=== PATIENT | male | born 1960 | race Hispanic/Latino ===

== ENCOUNTER → 2019-03-12 | Outpatient (CLI) | payer OTHER ==
--- NOTE | 2019-03-12 13:41 | Diagnostic Imaging Report ---
EXAM: US ABDOMEN COMPLETE DATE: 03/12/2019 8:13 AM INDICATION:Steatosis of liver COMPARISON: None FINDINGS: Grayscale and color flow Doppler ultrasound of the abdomen was performed. Liver: 14.3 cm span, no hepatomegaly. Mildly hyperechoic hepatic parenchyma compatible with steatosis. No intrahepatic mass or duct dilatation. Main portal vein 1.0 cm, nondilated, normal hepatopetal flow. Spleen: 8.9 cm span, no splenomegaly. Biliary: No cholelithiasis or gallbladder wall thickening. Sonographic Mireles sign negative. Common bile duct 0.3 cm, normal. Pancreas: Partially obscured by bowel. Visualized portions show no mass or duct dilatation. Right kidney: 10.5 x 5.8 x 5.4 cm. Normal cortical echogenicity. No hydronephrosis or contour deforming mass. Left kidney: 10.6 x 6.1 x 6.0 cm. Normal cortical echogenicity. No hydronephrosis or contour deforming mass. Vessels: Aorta and IVC partially obscured by overlying bowel. Visualized portions normal. Ascites: None IMPRESSION: 1. No sonographic evidence for acute abdominal pathology. 2. No hepatosplenomegaly. Mildly hyperechoic hepatic parenchyma compatible with steatosis. 3. No cholelithiasis or dilatation of the biliary tree. Signed by: Dr. Neftali Joy M.D. on 03/12/2019 1:38 PM
== END ==
LOC: US 08:05
PROVIDERS: ATTEND Internal Medicine Gastroenterology
DX: K76.0 Fatty (change of) liver, not elsewhere classified (principal)
CPT/HCPCS: 76700